=== PATIENT | male | born 1990 | race American Indian/Alaskan Native ===

== ENCOUNTER 2019-07-12 10:06 | Emergency (ER) | payer SELFPAY ==
--- NOTE | 2019-07-12 14:44 | Emergency Department Report ---
ED General Adult HPI - General Chief complaint: Skin/Abscess/Foreign Body Stated complaint: CYST REMOVAL Time Seen by Provider: 07/12/19 14:21 Source: patient Mode of arrival: Ambulatory Limitations: No Limitations - History of Present Illness Initial comments: 29yo BM states that he has a reoccurring cyst on the R side of his face that is painful. Pt states that it has been drained a few times before. Location: face Radiation: non-radiation Severity scale (0 -10): 8 Quality: aching Improves with: none Worsens with: none Associated Symptoms: denies other symptoms Treatments Prior to Arrival: heat therapy - Related Data Previous Rx's Medication Instructions Recorded Last Taken Type Doxycycline Monohydrate 100 mg PO BID 10 Days #20 capsule 07/12/19 Unknown Rx [Doxycycline Monohydrate CAP] Ibuprofen [Motrin 600 MG tab] 600 mg PO Q8H PRN 7 Days #21 tablet 07/12/19 Unknown Rx Allergies Allergy/AdvReac Type Severity Reaction Status Date / Time No Known Allergies Allergy Unverified 07/12/19 10:07 ED Review of Systems ROS: Stated complaint: CYST REMOVAL Other details as noted in HPI ED Past Medical Hx - Past Medical History Previous Medical History?: No - Surgical History Additional Surgical History: right hand - Social History Smoking Status: Never Smoker Substance Use Type: Alcohol - Medications Home Medications: Home Medications Medication Instructions Recorded Confirmed Last Taken Type Doxycycline Monohydrate 100 mg PO BID 10 Days #20 capsule 07/12/19 Unknown Rx [Doxycycline Monohydrate CAP] Ibuprofen [Motrin 600 MG tab] 600 mg PO Q8H PRN 7 Days #21 tablet 07/12/19 Unknown Rx ED Physical Exam - General Limitations: No Limitations General appearance: alert, in no apparent distress, appears intoxicated - Head Head exam: Present: atraumatic, normocephalic - Expanded Head Exam Expanded Head exam: Present: other - Eye Eye exam: Present: normal appearance, PERRL, EOMI - ENT ENT exam: Present: normal exam, normal orophraynx - Neck Neck exam: Present: normal inspection, tenderness, meningismus, full ROM - Respiratory Respiratory exam: Present: normal lung sounds bilaterally. Absent: respiratory distress, wheezes - Cardiovascular Cardiovascular Exam: Present: regular rate, normal rhythm, normal heart sounds - GI/Abdominal GI/Abdominal exam: Present: soft. Absent: distended, tenderness (erythematous circucal papule that is tender to palpation) ED Course Vital Signs 07/12/19 10:09 Temperature 98.4 F Pulse Rate 83 Respiratory 15 Rate Blood Pressure 120/68 O2 Sat by Pulse 99 Oximetry - Procedure Description Procedures done: At the site of infection on the L side of the pt's face on just medial to the tragus. Iodine swabbs were used to clean the site, 3 cc of lidocaine were used for analgesia, an 11 blade, and a culture was sent off. There was a serosainguineous drainage excreted. The pts stated that he felt a decrease in pain and pressure after the procedure was completed. ED Medical Decision Making - Medical Decision Making 29yo BM states that he has a reoccurring cyst on the R side of his face that is painful. Pt states that it has been drained a few times before. At the site of infection on the L side of the pt's face on just medial to the Tragus. Iodine swabs were used to clean the site, 3 cc of lidocaine were used for analgesia, an 11 blade, and a culture was sent off. There was a serosainguineous drainage excreted. The pt was stated that he felt a decrease in pain and pressure after the procedure was completed. Pt will be started on ibuprofen, doxycycline, and referred to general surgery. Pt will see ER as needed. Critical care attestation.: If time is entered above; I have spent that time in minutes in the direct care of this critically ill patient, excluding procedure time. ED Disposition Clinical Impression: Cyst, Cellulitis and abscess of face Disposition: - TO HOME OR SELFCARE Is pt being admited?: No Does the pt Need Aspirin: No Condition: Stable Instructions: Cellulitis (ED) Additional Instructions: The pt was stated that he felt a decrease in pain and pressure after the procedure was completed. Pt will be started on ibuprofen, doxycycline, and referred to general surgery. Pt will see ER as needed. Prescriptions: Doxycycline Monohydrate [Doxycycline Monohydrate CAP] 100 mg PO BID 10 Days #20 capsule Ibuprofen [Motrin 600 MG tab] 600 mg PO Q8H PRN 7 Days #21 tablet PRN Reason: Pain Referrals: PRIMARY CARE,MD [Primary Care Provider] - 3-5 Days ALDO MESA MD [Staff Physician] - 3-5 Days Time of Disposition: 15:34
[2019-07-12] MEDS ORDERED: LIDOCAINE-MPF (1%) 10 MG/1 ML VIAL 5 ML INFILTRATI ONE (14:51)
[2019-07-12 14:55] VITALS: BP 118/70
[2019-07-12] MEDS ORDERED: LIDOCAINE-MPF (1%) 10 MG/1 ML VIAL 5 ML ONE (14:55)
== END 2019-07-12 15:49 | disposition home or self-care (01) ==
LOC: ED 10:06
DX: L03.211 Cellulitis of face (principal); L02.01 Cutaneous abscess of face
CPT/HCPCS: 87116; 99282